=== PATIENT | female | born 1955 | race African-American/Black ===

== ENCOUNTER 2019-12-17 08:41 | Emergency (ER) | payer OTHER ==
[~2019-12-17] VITALS: Ht 160 cm; Wt 52.2 kg
[2019-12-17 08:45] VITALS: BP 117/80
[2019-12-17] MEDS ORDERED: Albuterol/Ipratropium 3ml neb HHN ONE (08:45)
[2019-12-17] MEDS ORDERED: Solu-MEDROL 125mg Inj IVP ONE (08:45)
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
--- NOTE | 2019-12-17 08:52 | NUR ---
ED Nurse Note: Pt brought in by RA [place] from a bus stop, Pt c/o SOB with low oxygen and generalized bodyaches/dry coughing x 24 hours. Per EMS, pt sats at the scene at 86 % in room air. Oxygen at 4L applied and oxygenation improved at 96 %. AAO x4, follows commands with non labored breathing.
[2019-12-17] MEDS ORDERED: HYDROcodone/Acetamin 5/325 tab ORAL ONE (09:15)
--- NOTE | 2019-12-17 09:25 | NUR ---
ED Nurse Note: Collected blood specimen then sent.
[2019-12-17 09:38] LABS: BASOPHILS % (AUTO) 1.2 % (0.0-2.0); EOSINOPHILS % (AUTO) 0.2 % (0.0-3.0); HEMATOCRIT 42.4 % (37.0-47.0); HEMOGLOBIN 15.1 G/DL (12.0-16.0); LYMPHOCYTES % (AUTO) 33.8 % (20.0-45.0); MEAN CORPUSCULAR VOLUME 100 FL (80-99); MONOCYTES % (AUTO) 9.6 % (1.0-10.0); NEUTROPHILS % (AUTO) 55.2 % (45.0-75.0); PLATELET COUNT 156 K/UL (150-450); RED BLOOD COUNT 4.25 M/UL (4.20-5.40); RED CELL DISTRIBUTION WIDTH 10.4 % (11.6-14.8); WHITE BLOOD COUNT 9.5 K/UL (4.8-10.8)
[2019-12-17 09:45] LABS: ANION GAP 12 mmol/L (5-15); BLOOD UREA NITROGEN 34 mg/dL (7-18); CARBON DIOXIDE 24 MMOL/L (21-32); CHLORIDE 108 MMOL/L (98-107); POTASSIUM 3.8 MMOL/L (3.5-5.1); SODIUM 144 MMOL/L (136-145)
[2019-12-17 09:58] LABS: ALANINE AMINOTRANSFERASE 50 U/L (12-78); ALBUMIN 3.7 G/DL (3.4-5.0); ALBUMIN/GLOBULIN RATIO 0.9 (1.0-2.7); ALKALINE PHOSPHATASE 91 U/L (46-116); ASPARTATE AMINO TRANSFERASE 32 U/L (15-37); BILIRUBIN,TOTAL 0.9 MG/DL (0.2-1.0)
[2019-12-17] MEDS ORDERED: Albuterol 90mcg Inhaler 8gm INH SCH (10:00)
--- NOTE | 2019-12-17 10:00 | NUR ---
ED Nurse Note: Dr Choi cancelled breathing treatments.
[2019-12-17] MEDS ORDERED: VENTOLIN HFA18 GM INH (10:20)
[2019-12-17] MEDS ORDERED: METFORMIN HCL500 M1 ORAL (10:20)
[2019-12-17] MEDS ORDERED: ALBUTEROL SULF8.5 G1 INH (10:20)
--- NOTE | 2019-12-17 10:30 | NUR ---
ED Nurse Note: Pt to be monitored in room air. o2 sat at 89-90 % in room air. Dr Steph parker.
[2019-12-17 10:45] VITALS: BP 125/70
--- NOTE | 2019-12-17 10:57 | Diagnostic Imaging Report ---
Indication: Shortness of breath Technique: XRAY Chest 1v Comparison: None Findings: Heart size and mediastinal contours within normal for AP technique. Atherosclerotic calcifications noted in the aortic arch. There is no focal airspace consolidation. No pleural effusion, pneumothorax or radiographic evidence of pulmonary edema. No acute osseous abnormality identified. Impression: No radiographic evidence of acute cardiopulmonary disease.
--- NOTE | 2019-12-17 11:15 | NUR ---
ED Nurse Note: [place] and juice were provided to pt.
[2019-12-17] MEDS ORDERED: ALBUTEROL2.5 MG/3 M HHN (11:56)
[2019-12-17 12:35] VITALS: BP 122/87
[2019-12-17] MEDS ORDERED: PREDNISONE50 MG ORAL (13:02)
[2019-12-17 13:55] VITALS: BP 131/84
--- NOTE | 2019-12-17 13:55 | NUR ---
ER DISCHARGE NOTE: Patient is cleared to be discharged per ERMD, pt is aox4, on room air, with stable vital signs. pt was given dc and prescription instructions, community list and provided with medications given to pt. pt was able to verbalize understanding, pt id band and iv site removed without complications. pt is able to ambulate with steady gait. pt took all belongings.
== END 2019-12-17 13:55 | disposition home or self-care (01) ==
LOC: EDBD 08:41 → EMR 09:10
DX: J44.1 Chronic obstructive pulmonary disease with (acute) exacerbation (principal); I10 Essential (primary) hypertension; E11.9 Type 2 diabetes mellitus without complications
CPT/HCPCS: 71045; 80053; 83880; 84484; 85025; 93005; 96374; J2930; Z7502; 99284